=== PATIENT | female | born 2000 | race Caucasian/White ===

== ENCOUNTER 2022-09-12 11:46 | Emergency (ER) | payer OTHER, SELFPAY ==
--- NOTE | ~2022-09-12 | CT_ITS ---
EXAMINATION: CT abdomen pelvis w con DATE: 09/12/2022 14:06 INDICATION: Flank pain. Transaminitis TECHNIQUE: Computed tomography (CT) of the abdomen and pelvis was performed with 100 cc Omnipaque 350 intravenous contrast. The dose-length product was 327.19 mGy-cm. Automated exposure control and iter ative reconstruction technique were employed. COMPARISON: None. FINDINGS: Lung bases are unremarkable. Heart size is normal. The liver, spleen, pancreas, adrenal gla nds and kidneys are unremarkable. Gallbladder is present. Nonobstructive bowel pattern. Small amount of free fluid in the pelvis. Nonobstructive bowel pattern. No acute osseous abnormality. IMPRESSION: 1. No acute abdominal abnormality. Reviewed, dictated and finalized at location B.
[2022-09-12 11:48] VITALS: BP 110/63; PULSE 79; RESP 16; TEMP 36.6; O2SAT 100
[2022-09-12 12:37] LABS: Basophils Absolute Auto 0.1 K/mm3 (0.0-0.1); Basophils Percent Auto 1.5 % (0.2-1.2); Eosinophils Absolute Auto 0.2 K/mm3 (0-0.3); Eosinophils Percent Auto 3.8 % (0-4.4); Hematocrit 41.1 % (37.0-47.0); Hemoglobin 13.5 g/dL (12.0-15.0); Lymphocytes Absolute Auto 1.46 K/mm3 (0.9-3.2); Lymphocytes Percent Auto 37.3 % (18.3-44.2); Mean Corpuscular HGB Conc 32.8 g/dl (32-36); Mean Corpuscular Hemoglobin 28.6 pg (26-34); Mean Corpuscular Volume 87.1 fl (80-100); Monocytes Absolute Auto 0.3 K/mm3 (0.1-0.6); Monocytes Percent Auto 8.4 % (2.6-8.5); Neutrophils Absolute Auto 1.9 K/mm3 (1.3-6.7); Platelet Count Result 215 k/mm3 (150-375); Red Blood Count 4.72 M/mm3 (4.2-5.4); Red Cell Distribution Width 13.5 % (11.5-14.5); White Blood Count 3.9 K/mm3 (4.5-10.0)
[2022-09-12 12:42] LABS: Alanine Aminotransferase 682 U/L (6-35); Albumin Level 4.4 g/dL (3.5-5.1); Alkaline Phosphatase 242 U/L (38-126); Anion Gap 7 mmol/L (8-16); Aspartate Amino Transferase 279 U/L (14-36); Bilirubin,Total 0.7 mg/dL (0.2-1.3); Blood Urea Nitrogen 10 mg/dL (7-17); Calcium 9.1 mg/dL (8.4-10.2); Carbon Dioxide 26 mmol/L (22-30); Chloride 105 mmol/L (98-107); Estimated CRCL calculation 153 ml/min; Estimated Glomerular Filt Rate > 60; Glucose 110 mg/dL (65-110); Potassium 3.6 mmol/L (3.4-5.0); Sodium 138 mmol/L (137-145)
[2022-09-12] MEDS: ONDANSETRON INJ 4 MG/2 ML VIAL IV PUSH (12:43)
[2022-09-12] MEDS: SODIUM CHLORIDE 0.9% IV 1,000 ML 999 ML IV CONT (12:43)
[2022-09-12] MEDS: KETOROLAC 30 MG/ML VIAL (*BKC) IV PUSH (12:44)
[2022-09-12 12:45] LABS: Appearance Urine Cloudy (Clear); Bacteria Urine 4+ /hpf; Bilirubin Urine Negative (Negative); Blood Urine Negative (Negative); Color Urine Yellow (Yellow); Glucose Urine UA Negative (Negative); Ketones Urine Negative (Negative); Leukocyte Esterase Ur Negative LEU/UL (Negative); Mucus Urine Present /lpf; Nitrate Urine Negative (Negative); Protein Urine Negative (Negative); Specific Grav Ur 1.026 (1.001-1.035); Squamous Epithelial Cell Urine Few /hpf (Few); WBC Urine 21-50 /hpf
[2022-09-12 12:54] LABS: Add Urine Microscopic? YES
[2022-09-12 13:37] LABS: Monoscreen Negative (Negative); Negative Monotest Control Negative (Negative); Positive Monotest Control Positive (Positive)
--- NOTE | 2022-09-12 15:03 | ED.GENADULT ---
HPI - General Adult General Chief complaint: Nausea/Vomiting/Diarrhea Stated complaint: nausea/left flank pain Time Seen by Provider: 09/12/22 12:02 History of Present Illness HPI narrative: Patient is a 22-year-old female who presents ER with multiple issues. Reports fatigue for the last 4 days. She then developed some aching left-sided back pain yesterday. Worse with sneezing and twisting and bending. Denies fevers or chills or sweats. No runny nose or sore throat or cough. 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 She had an outbreak a week and a half ago. She has been taking Valtrex for this, she has not had a diagnosis of oral HSV but I suspect that is what is occurring. No urinary frequency urgency or dysuria. Related Data Allergies Allergy/AdvReac Type Severity Reaction Status Date / Time No Known Allergies Allergy Verified 09/12/22 11:50 Review of Systems Review of Systems: All systems reviewed & are unremarkable except as noted in HPI and below Constitutional: Constitutional: Denies chills, Reports fatigue and Denies fever(s) ENT: Denies nasal congestion and Denies sore throat Cardiovascular: Cardiovascular: Denies chest pain, Denies rapid heart rate and Denies radiating jaw, neck or arm pain Respiratory: Respiratory: Denies cough and Denies dyspnea Gastrointestinal: Gastrointestinal: Denies abdominal pain, Reports nausea and Denies vomiting Musculoskeletal: Musculoskeletal: Reports back pain Neurologic: Denies focal weakness and Denies numbness PMFSH Past Medical History Medical History (Updated 09/12/22 @ 16:28 by Laith Aguilar MD) Healthy female adult Surgical History Surgical History (Updated 09/12/22 @ 15:07 by Laith Aguilar MD) No history of previous surgery Exam Narrative: GENERAL: Well-appearing, well-nourished, and in no acute distress. HEAD: Normocephalic, atraumatic. EYES: PERRL and EOMI. ENT: Mucous membranes moist. CHEST: Clear to auscultation. No respiratory distress. HEART: Regular rate and rhythm. Normal peripheral pulses. ABDOMEN: Soft, nontender, nondistended. No CVA tenderness. EXTREMITIES: Normal range of motion. No edema. SKIN: Warm, dry, no rash. NEURO: Alert and oriented x3. PSYCH: Normal mood and affect. Course Course Emergency Course: Patient educated about lab findings. I have discussed the case with Dr. Arvizu who will follow the patient up in his office in the next week and they will reach out and contact her tomorrow. Discussed with patient that ensuring normalization of her liver enzymes is important. She is verbalized understanding of this. Patient also be treated for UTI. Vital Signs Vital signs: Vital Signs Temperature 98 F 09/12/22 11:48 Pulse Rate 79 09/12/22 11:48 Respiratory Rate 16 09/12/22 11:48 Blood Pressure 110/63 09/12/22 11:48 Pulse Oximetry 100 09/12/22 11:48 Oxygen Delivery Room Air 09/12/22 11:48 Temperature 98 F 09/12/22 11:48 Pulse Rate 79 09/12/22 11:48 Respiratory Rate 16 09/12/22 11:48 Blood Pressure 110/63 09/12/22 11:48 Pulse Oximetry 100 09/12/22 11:48 Oxygen Delivery Room Air 09/12/22 11:48 Medical Decision Making Vital Signs Vital Signs: Vital Signs Temperature 98 F 09/12/22 11:48 Pulse Rate 79 09/12/22 11:48 Respiratory Rate 16 09/12/22 11:48 Blood Pressure 110/63 09/12/22 11:48 Pulse Oximetry 100 09/12/22 11:48 Oxygen Delivery Room Air 09/12/22 11:48 Temperature 98 F 09/12/22 11:48 Pulse Rate 79 09/12/22 11:48 Respiratory Rate 16 09/12/22 11:48 Blood Pressure 110/63 09/12/22 11:48 Pulse Oximetry 100 09/12/22 11:48 Oxygen Delivery Room Air 09/12/22 11:48 Lab Data 09/12/22 12:24 09/12/22 12:24 Labs: Lab Results 09/12/22 09/12/22 Range/Units 12:24 12:58 WBC 3.9 L (4.5-10.0) K/mm3 RBC 4.72 (4.2-5
[2022-09-12 16:41] LABS: Hepatitis B Surface Antigen Negative (Negative)
[2022-09-12 16:48] LABS: HAV RESULT Negative (Negative); Hepatitis B Core IgM Result Negative (Negative)
[2022-09-12 16:59] LABS: Hepatitis C Virus Antibody Negative (Negative)
== END 2022-09-12 16:27 | disposition home or self-care (01) ==
PROVIDERS: Emergency Provider Emergency Medicine
DX: R74.01 Elevation of levels of liver transaminase levels (principal); N39.0 Urinary tract infection, site not specified; B34.9 Viral infection, unspecified
CPT/HCPCS: 36415; 74177; 80053; 80074; 81001; 81025; 85025; 86308; 87086; 87088; 96361; 96374; 96375; 99284; J1885; J2405; J7030; Q9967